=== PATIENT | male | born 1980 | race Hispanic/Latino ===

== ENCOUNTER 2021-07-09 10:50 | Emergency (ER) | payer SELFPAY ==
--- NOTE | 2021-07-09 11:07 | Event Note ---
ED Screening Note ED Screening Note: ptsd; bipolar coming from [facility] off meds for 1 m hearing voices; paranoid; feels everyone is going to hurt him rx ssri/seroquel and cant remember others no si no hi This initial assessment/diagnostic orders/clinical plan/treatment(s) is/are subject to change based on patients health status, clinical progression and re- assessment by fellow clinical providers in the ED. Further treatment and workup at subsequent clinical providers discretion. Patient/guardian urged not to elope from the ED as their condition may be serious if not clinically assessed and managed. Initial orders include: mhe
[2021-07-09 12:05] LABS: Basophils # (Auto) 0.1 K/mm3 (0.0-0.1); Basophils % (Auto) 1.1 % (0.0-1.8); Eosinophils # (Auto) 0.2 K/mm3 (0.0-0.4); Eosinophils % (Auto) 3.9 % (0.0-4.3); Hematocrit 39.4 % (35.5-45.6); Hemoglobin 12.9 gm/dl (11.8-15.2); Lymphocytes # (Auto) 1.9 K/mm3 (1.2-5.4); Lymphocytes % (Auto) 33.2 % (13.4-35.0); Mean Corpuscular HGB Conc 33 % (32-34); Mean Corpuscular Volume 89 fl (84-94); Monocytes # (Auto) 0.5 K/mm3 (0.0-0.8); Monocytes % (Auto) 9.4 % (0.0-7.3); Platelet Count 182 K/mm3 (140-440); Red Blood Count 4.46 M/mm3 (3.65-5.03); Red Cell Distribution Width 14.1 % (13.2-15.2)
[2021-07-09 12:37] LABS: Alanine Aminotransferase 24 units/L (7-56); Albumin 4.1 g/dL (3.9-5); Blood Urea Nitrogen 15 mg/dL (9-20); Calcium 9.3 mg/dL (8.4-10.2); Hemolysis Index 6
[2021-07-09 12:52] LABS: BUN/Creatinine Ratio 21
--- NOTE | 2021-07-09 17:28 | Emergency Department Report ---
ED Psych HPI - General Chief Complaint: Psych Stated Complaint: PSYCH EVAL/HEARING VOICES Time Seen by Provider: 07/09/21 11:05 Source: patient Mode of arrival: Ambulatory - History of Present Illness Initial Comments: Patient is 41 years old male with history of posttraumatic stress disorder. Patient stated that he is off his medicine for approximately 1 month now. Patient presented to the ER for mental health evaluation. Patient stated that he is having racing thoughts and he is feeling that people are after him. He also admitted hearing voices. He denied any suicidal homicidal ideation. MD Complaint: altered mental status -: days(s) Associated Psychiatric Symptoms: racing thoughts History of same: Yes Quality: constant Associated Symptoms: denies other symptoms - Related Data Previous Rx's Medication Instructions Recorded Last Taken Type Divalproex Dr [DepaKOTE DR] 125 mg PO BID 30 Days #60 tablet 07/10/21 Unknown Rx Quetiapine Fumarate [SEROquel] 50 mg PO QHS 30 Days #30 07/10/21 Unknown Rx Allergies Allergy/AdvReac Type Severity Reaction Status Date / Time No Known Allergies Allergy Verified 07/09/21 11:06 ED Review of Systems ROS: Stated complaint: PSYCH EVAL/HEARING VOICES Other details as noted in HPI Comment: All other systems reviewed and negative Constitutional: denies: chills, fever Respiratory: denies: cough, shortness of breath, SOB with exertion Cardiovascular: denies: chest pain, palpitations Gastrointestinal: denies: abdominal pain, nausea, vomiting, diarrhea Musculoskeletal: denies: back pain Neurological: denies: headache, weakness, numbness, paresthesias, confusion ED Past Medical Hx - Past Medical History Previous Medical History?: Yes Hx Seizures: Yes Hx Psychiatric Treatment: Yes (depression) - Surgical History Past Surgical History?: No - Medications Home Medications: Home Medications Medication Instructions Recorded Confirmed Last Taken Type Divalproex Dr [DepaKOTE DR] 125 mg PO BID 30 Days #60 tablet 07/10/21 Unknown Rx Quetiapine Fumarate [SEROquel] 50 mg PO QHS 30 Days #30 07/10/21 Unknown Rx ED Physical Exam - General Limitations: No Limitations General appearance: alert, in no apparent distress, anxious - Head Head exam: Present: atraumatic, normocephalic, normal inspection - Eye Eye exam: Present: normal appearance - ENT ENT exam: Present: normal exam, normal orophraynx, mucous membranes moist - Neck Neck exam: Present: normal inspection, full ROM. Absent: tenderness, meningismus - Respiratory Respiratory exam: Present: normal lung sounds bilaterally - Cardiovascular Cardiovascular Exam: Present: regular rate, normal rhythm, normal heart sounds - GI/Abdominal GI/Abdominal exam: Present: soft, normal bowel sounds. Absent: distended, tenderness, guarding, rebound, rigid, organomegaly, mass, bruit, pulsatile mass, hernia - Extremities Exam Extremities exam: Present: normal inspection, full ROM, normal capillary refill. Absent: tenderness - Back Exam Back exam: Present: normal inspection. Absent: CVA tenderness (R), CVA tenderness (L) - Neurological Exam Neurological exam: Present: alert, oriented X3, CN II-XII intact, normal gait. Absent: motor sensory deficit - Psychiatric Psychiatric exam: Present: anxious. Absent: homicidal ideation, suicidal ideation - Skin Skin exam: Present: warm, intact, normal color ED Course Vital Signs 07/09/21 07/09/21 07/09/21 11:06 11:07 20:39 Temperature 98.2 F 98.2 F 98.1 F Pulse Rate 108 H 100 H Respiratory 16 16 18 Rate Blood Pressure 116/64 118/63 Blood Pressure 120/61 [Left] O2 Sat by Pulse 96 97 Oximetry 07/10/21 07/10/21 09:31 10:40 Temperature 97.7 F Pulse Rate 89 Respiratory 18 Rate Blood Pressure Blood Pressure 103/58 [Left] O2 Sat by Pulse 98 98 Oximetry ED Medical Decision Making - Lab Data Result diagrams: 07/09/21 11:18 07/09/21 11:18 - Medical Decision Making Patient is 41 years old male with history of posttraumatic stress disorder. Patient stated that he is off his medicine for approximately 1 month now. Patient presented to the ER for mental health evaluation. Patient stated that he is having racing thoughts and he is feeling that people are after him. He also admitted hearing voices. He denied any suicidal homicidal ideation. Labs reviewed and is unremarkable however urinalysis and UDS is still pending. Patient is medically cleared to be evaluated by psychiatric team. Critical care attestation.: If time is entered above; I have spent that time in minutes in the direct care of this critically ill patient, excluding procedure time. ED Disposition Clinical Impression: Acute psychosis Disposition: HOME / SELF CARE / HOMELESS Is pt being admited?: No Condition: Stable Additional Instructions: Professional and Agency Contacts To help Resolve Crises (22/12) [place] Crisis Line: Suicide Prevention Line: Crisis Text Line: Text START to 238697 Emergency: 911 Outpatient COMMUNITY Behavioral Health Resources: [place]: [facility] [address], [place] [address] [place]: [facility] [address] [place] [address] Thursday thru Thursday - 8am - 5pm Call to schedule an assessment for mental health and substance abuse programs [place]: [facility] Address: [address] [place] [address] Thursday thru Thursday- 7am-2pm [facility] Address: [address] [place] [address] Thursday thru Thursday: 8:30AM-5PM HOMELESS RESOURCES: [facility] NEED HELP? If you are in need of help or know someone who does, please contact us at [email or web address] call , or come to our offices at [address] [place] [address], Thursday-Thursday beginning 9:30 AM-1:30 PM -Support services help people with getting identification and legal documents -Homeless verification letter -Facesheet (if needed) [facility] M[facility] only Admission at 7am Thu to Thu Address: [address] [place] [address] Client Engagement [phone] Regular program admission occurs Thursday through Thursday at 7:00 amand operates on a first come, first serve basis.Because we cant anticipate program availability in advance andprogram spots are in high demand, we recommend arriving early. Space fills up fast! Next steps can include: Assignment to a [facility] program bed Connection to and placement in a partner program, or Referral to a partner agency [facility] Admission at 4:30pm daily Address: [address] , [place] [address] [facility] Admission from 8am to 10am Daily No intake until 05/28/20 Address: [place] [address] Prescriptions: Quetiapine Fumarate [SEROquel] 50 mg PO QHS 30 Days #[address] [DepaKOTE DR] 125 mg PO BID 30 Days #60 tablet Referrals: PRIMARY CARE, [Primary Care Provider] - 3-5 Days
[2021-07-10 09:32] VITALS: BP 103/58
[2021-07-10 09:36] LABS: Bilirubin,Urine NEG (Negative); Blood,Urine NEG (Negative); Color,Urine Yellow (Yellow); Protein,Urine <15 mg/dL mg/dL (Negative); Urobilinogen,Urine < 2.0 mg/dL (<2.0); WBC,Urine < 1.0 /HPF (0.0-6.0)
[2021-07-10 09:42] LABS: RBC,Urine < 1.0 /HPF (0.0-6.0)
[2021-07-10 09:45] LABS: Amphetamine Screen,Urine Negative; Benzodiazepines Screen,Urine Negative; Cannabinoid Screen,Urine Negative; Cocaine Screen,Urine Negative; Methadone Screen,Urine Negative; Opiate Screen,Urine Negative
--- NOTE | 2021-07-10 11:37 | Consultation ---
History of Present Illness - Reason for Consult Consult date: 07/10/21 Reason for consult: mental health evaluation - History of Present Psychiatric Illness ED Note: Patient is 41 years old male with history of posttraumatic stress disorder. Patient stated that he is off his medicine for approximately 1 month now. Patient presented to the ER for mental health evaluation. Patient stated that he is having racing thoughts and he is feeling that people are after him. He also admitted hearing voices. He denied any suicidal homicidal ideation. The patient is a 41 year old male with history of depression and PTSD. In my interview with the patient, he is calm, alert and orient x2. the patient was recently released from a rehab, states that he relapsed on Meth about 8 days ago and stopped taking psychotropic medications about a month days ago. The patient denies any current suicidal/homicidal ideation and denies hallucinations. PAST PSYCHIATRIC HISTORY Diagnoses: Bipolar, PTSD Suicide attempts or Self-harm behavior: Denies Prior psychiatric hospitalizations: Denies Substance Abuse history: Meth Previous psychiatric medications tried: Seroquel Outpatient treatment: Unknown PAST MEDICAL HISTORY: Family Psychiatric History: Not available SOCIAL HISTORY Marital Status: Single Living Arrangements: Homeless Employment Status:unemployed Access to guns/weapons: None reported Education:12th History of Abuse: None reported Legal History: None reported REVIEW OF SYSTEMS Constitutional: Negative for weight loss ENT: Negative for stridor Respiratory: Negative for cough or hemoptysis All other systems reviewed and are negative MENTAL STATUS EXAMINATION General Appearance and Behavior: Age appropriate, good hygiene, wearing appropriate clothes, good eye contact, cooperative polite with questioning. Cooperation: Participating Psychomotor Behavior: abnormal Mood: Depressed Affect and affective range: congruent with mood Thought Process: Goal directed Thought Content: Reality oriented Speech: Normal volume, Regular rate and rhythm Intellectual Functioning: Average Suicidal Ideation: Denies Homicidal Ideation: Denies Hallucinations: Denies Impulse Control: Unimpaired Insight and Judgment: Limited insight and judgment Memory: Attention: Divided Orientation: Alert, orientedx2 Assessment and Plan (1) Bipolar (2) Current Visit: Yes Status: Acute RECOMMENDATIONS DC 1013 continue home meds. Seroquel 50mg po qhs Depakote 125mg po BID Risks, benefits and alternatives of medications discussed with the patient, questions answered and consent obtained from patient. PSYCHOTHERAPY: Supportive psychotherapy provided MEDICAL: Per primary team DELIRIUM PRECAUTIONS: Please re-orient patient frequently, keep lights on during the day, and minimize benzodiazepines and opiates as these medications could worsen patient's confusion. REEL STRIPPER: Per medical team DISPOSITION: Do not recommend acute inpatient psychiatric hospitalization at this time. [facility] [employer] Operator will provide patient with psychiatry out patient resources FOLLOW-UP: Will sign off. Thank you for the consult. Please contact with any questions and/or concerns. Medications and Allergies Medications and Allergies Allergies Allergy/AdvReac Type Severity Reaction Status Date / Time No Known Allergies Allergy Verified 07/09/21 11:06 Home Medications Medication Instructions Recorded Confirmed Last Taken Type Divalproex Dr [DepaKOTE DR] 125 mg PO BID 30 Days #60 tablet 07/10/21 Unknown Rx Quetiapine Fumarate [SEROquel] 50 mg PO QHS 30 Days #30 07/10/21 Unknown Rx Mental Status Exam - Vital signs Last Vital Signs Temp 97.7 F 07/10/21 09:31 Pulse 89 07/10/21 09:31 Resp 18 07/10/21 09:31 BP 103/58 07/10/21 09:31 Pulse Ox 98 07/10/21 10:40 Results Result Diagrams: 07/09/21 11:18 07/09/21 11:18 Abnormal lab results 07/09/21 07/09/21 07/09/21 Range/Units 11:18 11:18 11:18 [place] % (Auto) 9.4 H (0.0-7.3) % Creatinine 0.7 L (0.8-1.3) mg/dL Salicylates < 0.3 L (2.8-20.0) mg/dL Acetaminophen (10.0-30.0) ug/mL 07/09/21 Range/Units 11:18 [place] % (Auto) (0.0-7.3) % Creatinine (0.8-1.3) mg/dL Salicylates (2.8-20.0) mg/dL Acetaminophen 5.0 L (10.0-30.0) ug/mL All other labs normal.
--- NOTE | 2021-07-10 15:45 | Event Note ---
Patient has been cleared for discharge by psychiatric team
== END 2021-07-10 16:24 | disposition home or self-care (01) ==
LOC: ED 10:50
DX: F29 Unspecified psychosis not due to a substance or known physiological condition (principal); F32.A Depression, unspecified; Z20.822 Contact with and (suspected) exposure to COVID-19
CPT/HCPCS: 36415; 80053; 80307; 81001; 84443; 85025; 99284; U0003; 80320; G0480